=== PATIENT | female | born 1990 | race Caucasian/White ===

== ENCOUNTER 2018-09-07 19:39 | Emergency (ER) | payer OTHER ==
[~2018-09-07] VITALS: Ht 167.6 cm; Wt 64.9 kg
--- OUTSIDE RECORDS SUMMARY | 2018-09-07 19:42 | XMS REPORT | Summary of Care ---
Author Author Vanessa Garcia Organization Unknown Address Unknown Phone Unavailable Care Team Providers Care Senior Gis Analyst Name Role Phone MAXIMINO CR M.D. Unavailable Unavailable Vanessa Garcia Unavailable Unavailable FLORES FREITAS MD Unavailable Unavailable Tayo CHILDERS, Ph.D. 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 Avoid face, folds of groin, armpits. * Quantity: 1 Refills: 4 TAYO Espino, MAXIMINO * Start : 07-Aug-2018 Active 454 GM Jar Hydrocortisone 2.5 % External Ointment Apply and gently massage into affected areas twice daily as needed for rash. Arthur id putting medication into eye. * Quantity: 2 Refills: 6 TAYO Espino, MAXIMINO * Start : 07-Aug-2018 Active 28.35 GM Tube Allergies and Adverse Reactions Name Dates Details No Known Drug Allergies (Allergy) Status: Active Past Medical History Name Dates Details History of Colostomy in place (V44.3, Z93.3) Status: Resolved Procedures Procedure Dates Details [QLH] BILE ACIDS, FRACTIONATED AND TOTAL Date: 07-Aug-2018 History of Dilation And Curettage Completed History of Intestinal surgery Completed Immunization Name Dates Details Immunizations not documented Family History Name Dates Details Family history of malignant neoplasm (V16.9, Z80.9) Status: Active Social History Name Dates Details - Status: Name Dates Details Never smoker Vital Signs Date Test Result Details :39 BP Systolic 90 mm[Hg] Status: Comments: Location: [place]; Position: Sitting BP Diastolic 63 mm[Hg] Status: Comments: Location: [place]; Position: Sitting Height 66 in Status: Weight 134.25 lb Status: Body Mass Index Calculated 21.67 kg/m2 Status: Body Surface Area Calculated 1.69 m2 Status: Heart Rate 92 /min Status: Respiration Rate 16 /min Status: Results Date Description Value Details :10 [QLH] HEPATIC FUNCTION PANEL Total Protein 8.1 g/dl Range: 6.4-8.4 Albumin Lvl 2.7 g/dl (Below low threshold) Range: 3.5-5.0 Bili Total 0.3 mg/dl Range: 0.2-1.3 Bilirubin Direct 0.1 mg/dl Range: 0.0-0.3 Bilirubin Indirect 0.2 mg/dl Range: 0.0-1.0 Alk Phos 172 u/l (Above high threshold) Range: 39-136 AST 8 u/l Range: 0-37 ALT 17 u/l Range: 0-65 Globulin 5.4 g/dl (Above high threshold) Range: 2.7-4.2 A/G Ratio 0.5 (Below low threshold) Range: 0.7-1.6 :10 [H] Bile Acids Fractionated Ursodeoxycholic Acid <0.10 umol/L Comments: Reference Range:All Ages: <1.9 Cholic Acids 0.50 umol/L Comments: Reference Range:All Ages: <2.2 Chenodeoxycholic Acids 0.20 umol/L Comments: Reference Range:All Ages: <5.8 Deoxycholic Acids <0.10 umol/L Comments: Reference Range:All Ages: <3.3 Bile Acids Total 0.70 umol/L Comments: Reference Range:All Ages: <9.2Performed At: [facility] [id number] [place], [place] [id number] Samuel H MD Ph:[phone] Plan of Care Name Dates Details Planned Observations Planned Goals not documented Planned Encounters Appointment; MAXIMINO CR M.D. On: 20-Nov-2018 10:45 Interventions Provided Discussion/Summary* Guideline Used: * Izabella - Dr. Cr * Patient returned call. Chart reviewed. Dr. Cr note read to patient. Verbalized understanding and reports that she does not need a return call. * Intended Caller Action: * Other: to speak to clinical staff * Additional Information: * Comment added to active task Instructions Name Dates Details Instructions not documented Encounters Appointment; SHIRLENE MCKENZIE Encounter Diagnosis: Problem not documented On: 10-Oct-2016 13:00 Appointment; SHIRLENE MCKENZIE Encounter Diagnosis: Problem not documented On: 27-May-2017 11:30 Appointment; SHIRLENE MCKENZIE Encounter Diagnosis: Problem not documented On: 21-Oct-2017 9:45 Appointment; MAXIMINO CR M.D. Encounter Diagnosis: Problem not documented On: 07-Aug-2018 9:30
[2018-09-07 21:00] LABS: BILIRUBIN,URINE NEGATIVE (NEGATIVE); CLARITY,URINE SL CLOUDY (CLEAR); KETONES,URINE NEGATIVE (NEGATIVE); LEUKOCYTE ESTERASE ,URINE TRACE (NEGATIVE); NITRITE,URINE NEGATIVE (NEGATIVE); PROTEIN,URINE DIPSTICK 1+ (NEGATIVE); URINE UROBILINOGEN 0.2 mg/dL (0.2 - 1)
[2018-09-07 21:04] LABS: COLOR,URINE STRAW (YELLOW)
[2018-09-07 21:14] LABS: BACTERIA,URINE MANY /HPF; EPITHELIAL CELLS,URINE MODERATE /LPF; WBC,URINE (MAN) 0-5 /HPF (0-5)
[2018-09-07 21:15] LABS: AMORPHOUS SEDIMENT,URINE MODERATE (FEW)
== END 2018-09-07 21:51 | disposition home or self-care (01) ==
LOC: ER 19:39
DX: O23.12 Infections of bladder in pregnancy, second trimester (principal); R11.0 Nausea; J02.9 Acute pharyngitis, unspecified
CPT/HCPCS: 81001; 87086; 99282